=== PATIENT | female | born 1995 | race Caucasian/White ===

== ENCOUNTER 2018-08-05 14:09 | Outpatient (CLI) | payer OTHER ==
[2018-08-05 15:46] LABS: #Lymphocytes 1.9 thou/uL (1.20-3.40); #Monocytes 0.3 thou/uL (0.11-0.59); #Neutrophils 3.8 thou/uL (1.40-6.50); %Basophils 0.5 % (0.0-1.0); %Eosinophils 0.7 % (0.0-10.0); %Lymphocytes 31.1 % (28.0-48.0); %Monocytes 4.9 % (0.0-4.0); %Neutrophils 62.8 % (31.0-61.0); Mean Corpuscular HGB CONC 34.2 g/dL (32.0-36.0); Mean Corpuscular Hemoglobin 32.3 pg (25.0-35.0); Mean Corpuscular Volume 94.4 fL (78.0-98.0); Mean Platelet Volume 7.6 fL (7.4-10.4); Platelet Count 286 thou/uL (130-400); RBC Distribution Width 10.7 % (11.5-14.5); Red Blood Cell (RBC) Count 4.02 mill/uL (4.00-5.20)
[2018-08-05 15:48] LABS: BHCG - Serum Negative (NEGATIVE); Pregs Control Background? CLEAR/WHITE (CLR/WHITE); Pregs Control Bar Appear? YES (CONTROL BAR)
== END 2018-08-05 14:10 | disposition home or self-care (01) ==
LOC: LABBT 14:09
PROVIDERS: ATTEND Surgery
DX: Z01.812 Encounter for preprocedural laboratory examination (principal); K40.90 Unilateral inguinal hernia, without obstruction or gangrene, not specified as recurrent
CPT/HCPCS: 84703; 85025

== ENCOUNTER 2018-08-13 05:49 | Day surgery (SDC) | payer OTHER ==
[2018-08-05 14:27] VITALS: BMI 20.9
[2018-08-13] MEDS ORDERED: Fentanyl 100 MCG/2 ML VIAL ONE (06:21)
[2018-08-13] MEDS ORDERED: Bupivacaine/Epinephrine 0.25% 30 ML VIAL ONE (06:30)
[2018-08-13] MEDS ORDERED: Midazolam HCl 2 mg/2 ml Vial ONE (06:41)
[2018-08-13] MEDS ORDERED: Ondansetron PF 4 MG/2 ML Vial ONE (08:38)
--- NOTE | 2018-08-13 10:21 | OP ---
DATE OF PROCEDURE: 08/13/2018 PREOPERATIVE DIAGNOSIS: Right inguinal hernia. PROCEDURE PERFORMED: Right inguinal hernia repair with mesh. INDICATIONS: A 22-year-old female, who developed a painful right groin bulge and was found to have a hernia. FINDINGS: Right indirect inguinal hernia. DESCRIPTION OF PROCEDURE: After informed consent was obtained, the patient was taken to the operating room, given general mask anesthesia, placed in supine position. Her groin area was prepped and draped in usual fashion. Local anesthesia infiltrated subcutaneously and deep. A transverse inguinal incision was performed. The subcu was divided sharply. The Narcisa's fascia divided with electrocautery. The external oblique fascia was divided in the direction of its fibers through the external ring. The round ligament was isolated with a Raritan drain. The hernia sac was dissected from the round ligament down to the internal ring. The round ligament was divided and ligated with 3-0 Vicryl suture. The hernia sac was reduced. Reduction maintained with a PHS hernia system posterior layer placed in the preperitoneal space, anterior was laid out, tucked under the external oblique fascia laterally, sutured to the pubic tubercle medially. Redundant mesh was excised so that it lay flat. Hemostasis assured. The external oblique fascia was closed with a running 3-0 Vicryl, Narcisa was closed with interrupted 3-0 Vicryl, and skin closed with a running subcuticular 4-0 Monocryl. Steri-Strips applied. Sterile bandage applied. The patient tolerated the procedure well, transferred to Recovery in good condition. Sponge and needle count verified correct x2. Job ID: [id number]
== END 2018-08-13 10:20 | disposition home or self-care (01) ==
LOC: SDC 05:49
PROVIDERS: ATTEND Surgery
PROC: 0YU50JZ Supplement Right Inguinal Region with Synthetic Substitute, Open Approach (ICD-10-PCS; principal; 2018-08-13)
DX: K40.90 Unilateral inguinal hernia, without obstruction or gangrene, not specified as recurrent (principal)
CPT/HCPCS: C1781; J2250; J2405; J3010